=== PATIENT | male | born 1950 | race Two or more races ===

== ENCOUNTER → 2016-08-09 | Outpatient (CLI) | payer OTHER ==
[~2016-08-09] MED LIST: GADOBUTROL 10 ML VIAL IVP ONE
[2016-08-09 13:34] LABS: GLOMERULAR FILTRATION RATE > 60
== END ==
LOC: FIMAGING 12:38
PROVIDERS: ATTEND Urology
DX: C61 Malignant neoplasm of prostate (principal)
CPT/HCPCS: 72197; 76377; A9585